=== PATIENT | male | born 1995 | race Caucasian/White ===

== ENCOUNTER 2018-02-22 21:26 | Emergency (ER) | payer OTHER, MEDICAID ==
[~2018-02-22] VITALS: Ht 165.1 cm; Wt 70.3 kg
[2018-02-22 21:32] VITALS: BP_SYST 133
[2018-02-22 21:45] VITALS: BP_SYST 131
== END 2018-02-22 21:45 ==
LOC: SED 21:26
DX: R06.02 Shortness of breath (principal); V89.2XXA Person injured in unspecified motor-vehicle accident, traffic, initial encounter; Y93.89 Activity, other specified; Y92.410 Unspecified street and highway as the place of occurrence of the external cause; Y99.8 Other external cause status
CPT/HCPCS: 99283